=== PATIENT | female | born 1990 | race African-American/Black ===

== ENCOUNTER 2017-01-31 12:46 | Emergency (ER) | payer MEDICAID ==
[~2017-01-31] VITALS: Ht 157.5 cm; Wt 80.0 kg
[~2017-01-31 12:46] MED LIST: FLUT1SPR5 EACH NARE; METR500T10 PO
[2017-01-31 12:49] VITALS: BP 134/76; PULSE 81; RESP 18; TEMP 98.7; O2SAT 98
--- NOTE | 2017-01-31 12:53 | PD ---
Physical Exam Time Seen by Provider: 12:52 Narrative 26 y/o female here with sore throat, cough, congestion, headache for 4 days. Vital signs reviewed. Seen at triage desk. Awaiting bed placement. Data Data Last Documented VS Vital Signs Date Time Temp Pulse Resp B/P (MAP) Pulse Ox O2 Delivery O2 Flow Rate FiO2 01/31/17 12:49 98.7 81 18 134/76 (95) 98 Room Air MDM Medical Record Reviewed: Yes Supervised Visit with KARISSA: Per Matute Jan 31, 2017 12:53
--- NOTE | 2017-01-31 15:19 | PD ---
HPI Chief Complaint: Cold / Flu Symptoms Time Seen by Provider: 15:18 Travel History International Travel<30 days: No Contact w/Intl Traveler<30days: No Traveled to known affect area: No History of Present Illness HPI Patient now present in the room when I went to see her. Presumed AMA. PFSH Past Medical History Diminished Hearing: No Immunizations Current: Yes ?: Unknown LMP: UNKNOWN : 2 Para: 2 Social History Alcohol Use: No Tobacco Use: No Substance Use: No Allergies-Medications (Allergen,Severity, Reaction): Coded Allergies: No Known Allergies (Unverified , 01/31/17) Reported Meds & Prescriptions Reported Meds & Active Scripts Active Metronidazole 500 Mg Tab 500 Mg PO BID Flonase Nasal [place] (Fluticasone Nasal [place]) 50 Mcg/Act [place] 1-2 Spr EACH NARE DAILY Data Data Last Documented VS Vital Signs Date Time Temp Pulse Resp B/P (MAP) Pulse Ox O2 Delivery O2 Flow Rate FiO2 01/31/17 12:49 98.7 81 18 134/76 (95) 98 Room Air Buck Marques Jan 31, 2017 15:19
== END 2017-01-31 15:20 | disposition left against medical advice (07) ==
LOC: NEPK 12:46
DX: J02.9 Acute pharyngitis, unspecified (principal); R05 Cough; R09.81 Nasal congestion; R51 Headache; Z79.899 Other long term (current) drug therapy; Z53.21 Procedure and treatment not carried out due to patient leaving prior to being seen by health care provider
CPT/HCPCS: 99281